=== PATIENT | male | born 1990 | race Caucasian/White ===

== ENCOUNTER 2016-09-21 20:13 | Emergency (ER) | payer OTHER | END 2016-09-22 02:40 | disposition home or self-care (01) | LOC: ER 20:13 | DX: F22 Delusional disorders (principal); F41.9 Anxiety disorder, unspecified; R10.13 Epigastric pain; F17.210 Nicotine dependence, cigarettes, uncomplicated | CPT/HCPCS: 36415; 80307; 96361; 96374; G0480 ==